=== PATIENT | male | born 1970 | race Asian ===

== ENCOUNTER 2024-09-19 13:57 | Emergency (ER) | payer MEDICAID ==
[~2024-09-19] VITALS: Ht 167.6 cm; Wt 70.0 kg
[2024-09-19 13:59] VITALS: O2SAT 100
[2024-09-19 14:33] LABS: BG DEOXYHEMOGLOBIN 45.5 % (0.0-5.0)
[2024-09-19] MEDS: SODIUM CHLORIDE 0.9% 1,000 ML IV ONE (14:44)
[2024-09-19 15:13] LABS: BASOPHILS % 1.3 % (0.0-2.0); EOSINOPHILS % 3.5 % (0.0-5.0); HEMATOCRIT. 44.3 % (42.0-52.0); HEMOGLOBIN. 15.4 g/dL (14.0-18.0); MEAN CORPUSCULAR HEMOGLOBIN 32.2 pg (28.0-32.0); MEAN CORPUSCULAR HGB CONC 34.6 g/dL (31.0-37.0); MEAN CORPUSCULAR VOLUME 93.1 fL (80.0-94.0); MEAN PLATELET VOLUME 7.9 fl (7.4-10.4); MONOCYTES % 10.5 % (2.0-8.0); NEUTROPHILS % 64.7 % (40.0-76.0); PLATELET 257 x1000/uL (130-400); RED BLOOD CELL COUNT 4.76 mill/uL (4.7-6.1); WHITE BLOOD COUNT 6.2 x1000/uL (4.5-11.0)
[2024-09-19 15:22] LABS: INR 0.9; PROTHROMBIN TIME 10.1 sec (9.6-11.0)
[2024-09-19 15:35] LABS: CHLORIDE 101 mEq/L (98-107); POTASSIUM 3.7 mEq/L (3.5-5.1); SODIUM 137 mEq/L (136-145)
[2024-09-19 15:36] LABS: CARBON DIOXIDE 27 mEq/L (21-32)
[2024-09-19 15:41] LABS: GLUCOSE 206 mg/dL (70-105); UREA NITROGEN BLOOD 13 mg/dL (9-23)
[2024-09-19 15:43] LABS: CREATINE KINASE 101 IU/L (46-171)
[2024-09-19 15:50] LABS: BETA HYDROXYBUTYRATE < 0.1 mMol/L (0.0-0.3); TROPONIN I HIGH SENSITIVITY < 4 ng/L (3.0-53)
[2024-09-19 16:22] VITALS: BP 150/94; PULSE 87; RESP 16; TEMP 36.2; O2SAT 100
== END 2024-09-19 16:29 | disposition home or self-care (01) ==
LOC: ER 13:57
DX: R42 Dizziness and giddiness (principal); R03.0 Elevated blood-pressure reading, without diagnosis of hypertension
CPT/HCPCS: 99285; 96360; 71045; 80048; 82010; 82550; 83880; 83735; 83930; 85025; 85610; 84484; 36415; 82375; 82803; 93005; J7030